=== PATIENT | male | born 1970 | race Caucasian/White ===

== ENCOUNTER 2017-11-20 22:21 | Inpatient (IN) | payer MEDICARE, OTHER ==
[~2017-11-20] VITALS: Ht 170.2 cm; Wt 76.0 kg
[~2017-11-20 22:21] MED LIST: Z.0.NO CURRENT MEDS
[2017-11-20 22:23] VITALS: BP 104/74; PULSE 76; RESP 16; O2SAT 100
[2017-11-20 22:32] VITALS: BP 141/77; PULSE 66; RESP 16; TEMP 98.2; O2SAT 99
[2017-11-20] MEDS ORDERED: SODIUM CHLORIDE 0.9% FLUSH 10 ML FLUSH IVF PRN (22:45)
[2017-11-20 22:55] VITALS: O2SAT 99
[2017-11-20 23:05] LABS: AUTOMATED NEUTROPHIL # 4.3 TH/MM3 (1.8-7.7); BASOPHIL % 0.4 % (0.0-2.0); EOSINOPHIL % 0.5 % (0.0-4.0); HEMATOCRIT 39.4 % (39.0-51.0); HEMOGLOBIN 13.3 GM/DL (13.0-17.0); LYMPH % 23.2 % (9.0-44.0); LYMPHOCYTE # 1.5 TH/MM3 (1.0-4.8); MEAN CELL VOLUME 87.3 FL (80.0-100.0); MEAN CORPUSCULAR HEMOGLOBIN 29.5 PG (27.0-34.0); MEAN CORPUSCULAR HGB CONC 33.8 % (32.0-36.0); MEAN PLATELET VOLUME 8.5 FL (7.0-11.0); MONO % 7.4 % (0.0-8.0); MONOCYTE # 0.5 TH/MM3 (0-0.9); NEUT % 68.5 % (16.0-70.0); PLATELET COUNT 192 TH/MM3 (150-450); RED BLOOD COUNT 4.52 MIL/MM3 (4.50-5.90); RED CELL DISTRIBUTION WIDTH 14.2 % (11.6-17.2); WHITE BLOOD COUNT 6.3 TH/MM3 (4.0-11.0)
[2017-11-20 23:16] LABS: INTERNATIONAL NORMALIZED RATIO 1.2 RATIO
--- NOTE | 2017-11-20 23:20 | RADRPT ---
EXAM DATE: 11/20/2017 10:59 PM EDT AGE/SEX: 47 years / Male INDICATIONS: Short of breath. CLINICAL DATA: This is the patient's initial encounter. Patient reports that signs and symptoms have been present for 1 day and indicates a pain score of 0/10. MEDICAL/SURGICAL HISTORY: None. None. COMPARISON: No prior exams available for comparison. FINDINGS: Single AP view of the chest. The lungs are clear. Cardiomediastinal silhouette within nor mal limits. No evidence of pleural effusion or pneumothorax. CONCLUSION: No acute cardiopulmonary disease identified. Electronically signed by: Armando Restrepo MD 11/20/2017 11:19 PM EDT
[2017-11-20] MEDS ORDERED: IOHEXOL 350 MG/ML 10 ML VIAL (for RAD DIAG) IVCONTRAST ONE (23:24)
--- NOTE | 2017-11-20 23:25 | PD ---
HPI Chief Complaint: Suicide Ideation/Attempt Time Seen by Provider: 22:33 Travel History International Travel<30 days: No Contact w/Intl Traveler<30days: No Traveled to known affect area: No History of Present Illness HPI The patient is a 47 year old male who presents to the [facility] emergency department with a history of attempting suicide by hanging prior to arrival. The patient reports that he has been depressed and considering suicide. He reports that he has attempted suicide in the past. The patient placed an inch thick rope/webbing material around his neck and then connected it to a tree. He proceeded to get into his vehicle and attempt to drive away. Patient was found sitting in his vehicle after this occurred. The patient reported that he had a loss of consciousness. The patient reports having neck pain and shoulder pain bilaterally. The patient denies having any numbness or tingling to his extremities. He denies having any weakness of his extremities. The patient was brought in by [place] emergency services. The patient's blood sugar was noted to be 135 prior to arrival, pulse 76, blood pressure 104/74, sats 100% on 2 L nasal cannula O2. The patient denies taking any psychiatric medications. He denies having a mental health diagnosis. He reports having a prior history of head injury. He is unsure whether he had any brain surgery, however he does have a large scar over the right side of his scalp. He reports that he was admitted to the hospital for a month related to this. The patient reports having difficulty swallowing. The patient has a slightly hoarse quality to his voice. On review of systems otherwise, the patient denies having any known recent fevers, cough or congestion, neck pain, chest pain, abdominal pain, vomiting, diarrhea, urinary symptoms, or other neurologic symptoms. [facility] Past Medical History Narrative Medical The patient's past medical history is significant for a prior history of suicide attempt, history of prior head injury, arthritis Arthritis: Yes (HE SAYS ITS ALL OVER, HOT SHOWERS HELP ALOT) Asthma: No Autoimmune Disease: No Blood Disorders: No Anxiety: No Depression: Yes (DX DEPREESED NOS) Heart Rhythm Problems: No Cancer: No Cardiovascular Problems: No High Cholesterol: No Chemotherapy: No Chest Pain: No Congestive Heart Failure: No COPD: No Cerebrovascular Accident: No Coronary Artery Disease: No Diabetes: No Diminished Hearing: No Endocrine: No GERD: No Glaucoma: No Genitourinary: No Headaches: No Hepatitis: No Hiatal Hernia: No Hypertension: No Immune Disorder: No Kidney Stones: No Musculoskeletal: No Psychiatric: No Reproductive: No Respiratory: No Migraines: No Myocardial Infarction: No Radiation Therapy: No Renal Failure: No Seizures: No Sickle Cell Disease: No Sleep Apnea: No Thyroid Disease: No Ulcer: No Tetanus Vaccination: Unknown Past Surgical History Narrative Surgical The patient's past surgical history is significant for jaw ORIF, right knee surgery, unspecified head trauma related surgery Abdominal Surgery: No AICD: No Cardiac Surgery: No Cholecystectomy: No Ear Surgery: No Endocrine Surgery: No Eye Surgery: No Genitourinary Surgery: No Gynecologic Surgery: No Joint Replacement: No Oral Surgery: No Pacemaker: No Thoracic Surgery: No Other Surgery: Yes (UNSPECIFIED HEAD TRAUMA, LEFT BROKEN RIBS) Social History Alcohol Use: No Tobacco Use: No Substance Use: No Allergies-Medications (Allergen,Severity, Reaction): Coded Allergies: No Known Allergies (Verified Allergy, Unknown, 11/21/17) Reported Meds & Prescriptions Reported Meds & Active Scripts Active Reported No Current Meds (Miscellaneous Medication) Misc Review of Systems Except as stated in HPI: all other systems reviewed are Neg General / Constitutional: No: Fever Eyes: No: Visual changes HENT: Positive: Neck Pain, No: Headaches, Neck Stiffness Cardiovascular: No: Chest Pain or Discomfort Respiratory: Positive: Shortness of Breath, No: Cough Gastrointestinal: No: Nausea, Vomiting, Diarrhea, Abdominal Pain Genitourinary: No: Dysuria Musculoskeletal: No: Pain Skin: No Rash Neurologic: No: Weakness, Focal Abnormalities, Change in Mentation, Slurred Speech, Sensory Disturbance Psychiatric: Positive: Depression, Suicidal Ideations Endocrine: No: Polydipsia Hematologic/Lymphatic: No: Easy Bruising Physical Exam Narrative General: The patient is a well-developed well-nourished male in no acute distress. The patient is brought in by ambulance services with a cervical collar in place. No backboard. Head and Neck exam: Head is normocephalic atraumatic. No facial bone tenderness or increased facial bone mobility noted on palpation. Eyes: EOMI, pupils are equal round and reactive to light. Nose: Midline septum with pink mucous membranes Mouth: Dentition unremarkable. Moist mucus membranes. Posterior oropharynx is not erythematous. No tonsillar hypertrophy. Uvula midline. Airway patent. Neck: The patient is immobilized in a cervical collar. No tracheal deviation. The trachea appears midline. Cardiovascular: Regular rate and rhythm without murmurs, gallops, or rubs. No pulse deficit to the extremities on simultaneous auscultation and palpation of his radial artery. Lungs: Clear to auscultation bilaterally. No wheezes, rhonchi, or rales. No chest wall tenderness to palpation. No erythema or ecchymosis noted. No crepitus , step off, or flail segment noted. Abdomen: Soft, without tenderness to palpation in all 4 quadrants of the abdomen. No guarding, rebound, or rigidity. No erythema or ecchymosis noted. Extremities: No instability or pain noted on pelvic rock. No clubbing, cyanosis , or edema. 2+ pulses in all 4 extremities. No extremity tenderness or deformity noted on palpation or passive/ active range of motion. Back: No spinous process tenderness to palpation. No stepoff or crepitus noted. No costovertebral angle tenderness to palpation. No erythema or ecchymosis. Neurologic Exam: Cranial nerves 2-12 were intact on exam. Strength is 5/5 in all 4 extremities. No sensory deficits noted. Skin Exam: No rash noted. Intact skin that is warm and dry. Data Data Last Documented VS Vital Signs Date Time Temp Pulse Resp B/P (MAP) Pulse Ox O2 Delivery O2 Flow Rate FiO2 11/21/17 03:51 65 16 132/66 (88) 97 Room Air 11/20/17 22:32 98.2 Orders Orders I-Stat Profile (11/20/17 22:33) Complete Blood Count With Diff (11/20/17 22:33) Prothrombin Time / Inr (Pt) (11/20/17 22:33) Act Partial Throm Time (Ptt) (11/20/17 22:33) Type And Screen (11/20/17 22:33) Fibrinogen (11/20/17 22:33) Alcohol (Ethanol) (11/20/17 22:33) Chest, Single Ap (11/20/17 22:33) Ct Brain W/O Iv Contrast(Rout) (11/20/17 22:33) Ct Cerv Spine W/O Contrast (11/20/17 22:33) Electrocardiogram (11/20/17 22:33) Iv Access Insert/Monitor (11/20/17 22:33) Ecg Monitoring (11/20/17 22:33) Oximetry (11/20/17 22:33) Oxygen Administration (11/20/17 22:33) Sodium Chloride 0.9% Flush (Ns Flush) (11/20/17 22:45) Drug Screen, Random Urine (11/20/17 22:33) Comprehensive Metabolic Panel (11/20/17 22:33) Cta Neck W Iv Contrast W 3d (11/20/17 ) Iohexol 350 Inj (Omnipaque 350 Inj) (11/20/17 23:24) Sodium Chlor 0.9% 1000 Ml Inj (Ns 1000 M (11/21/17 00:15) Potassium Chloride (Kcl) (11/21/17 00:15) Psych Screen (11/21/17 01:25) Admit Order (Ed Use Only) (11/21/17 15:35) Admit To Inpatient Psych (11/21/17 ) Code Status (11/21/17 15:35) Vital Signs (Adult) ISAMAR.[id number].E (11/21/17 15:35) Activity Oob Ad Lyssa (11/21/17 15:35) Level Of Observation (Psych) (11/21/17 15:35) Acetaminophen (Tylenol) (11/21/17 15:45) Magnesium Hydroxide Liq (Milk Of Magnesi (11/21/17 15:45) Al-Mag Hy-Si 40-40-4 Mg/Ml Liq (Mag-Al P (11/21/17 15:45) Basic Metabolic Panel (Bmp) (11/22/17 06:00) Lipid Profile (11/22/17 06:00) Hemoglobin (Hgb) A1c (11/22/17 06:00) Consult Hospitalist (11/21/17 ) Labs Laboratory Tests Test 11/20/17 22:46 11/20/17 22:48 White Blood Count 6.3 TH/MM3 Red Blood Count 4.52 MIL/MM3 Hemoglobin 13.3 GM/DL Bedside Hemoglobin 12.6 G/DL Hematocrit 39.4 % Bedside Hematocrit 37.0 % Mean Corpuscular Volume 87.3 FL Mean Corpuscular Hemoglobin 29.5 PG Mean Corpuscular Hemoglobin Concent 33.8 % Red Cell Distribution Width 14.2 % Platelet Count 192 TH/MM3 Mean Platelet Volume 8.5 FL Neutrophils (%) (Auto) 68.5 % Lymphocytes (%) (Auto) 23.2 % Monocytes (%) (Auto) 7.4 % Eosinophils (%) (Auto) 0.5 % Basophils (%) (Auto) 0.4 % Neutrophils # (Auto) 4.3 TH/MM3 Lymphocytes # (Auto) 1.5 TH/MM3 Monocytes # (Auto) 0.5 TH/MM3 Eosinophils # (Auto) 0.0 TH/MM3 Basophils # (Auto) 0.0 TH/MM3 CBC Comment DIFF FINAL Differential Comment Prothrombin Time 12.0 SEC Prothromb Time International Ratio 1.2 RATIO Activated Partial Thromboplast Time 23.1 SEC Fibrinogen 191 mg/dL Bedside Sodium 140 MMOL/L Blood Urea Nitrogen 11 MG/DL Creatinine 1.42 MG/DL Random Glucose 136 MG/DL Total Protein 6.4 GM/DL Albumin 3.4 GM/DL Calcium Level 8.0 MG/DL Alkaline Phosphatase 43 U/L Aspartate Amino Transf (AST/SGOT) 11 U/L Alanine Aminotransferase (ALT/SGPT) 13 U/L Total Bilirubin 0.8 MG/DL Sodium Level 140 MEQ/L Potassium Level 3.1 MEQ/L Chloride Level 107 MEQ/L Carbon Dioxide Level 20.5 MEQ/L Bedside Potassium 3.1 MMOL/L Bedside Chloride 104 MMOL/L Anion Gap 13 MEQ/L Bedside Blood Urea Nitrogen 12 MG/DL Bedside Creatinine 1.3 MG/DL Estimat Glomerular Filtration Rate 54 ML/MIN Bedside Glucose 137 MG/DL Ethyl Alcohol Level LESS THAN 3 MG/DL Urine Opiates Screen NEG Urine Barbiturates Screen NEG Urine Amphetamines Screen NEG Urine Benzodiazepines Screen NEG Urine Cocaine Screen NEG Urine Cannabinoids Screen NEG MDM Medical Decision Making Medical Screen Exam Complete: Yes Emergency Medical Condition: Yes Medical Record Reviewed: Yes Differential Diagnosis Cervical vasculature injury, versus cervical spine injury, versus soft tissue hematoma, versus laryngeal injury Narrative Course During the course of the patient's emergency department visit, the patient's history, examination, and differential diagnosis were reviewed with the patient. The patient was placed on a residential monitor with oximetry and frequent blood pressure monitoring. The patient had IV access obtained and blood work sent for analysis. I-STAT with creatinine were ordered. The patient had a EKG done on arrival that shows a sinus bradycardia heart rate of 59, QRS duration 97 ms, QTC 441 ms. The patient's i-STAT revealed a creatinine of 1.3, sodium 140, potassium 3.1, chloride 104, BUN 12, glucose 137, hemoglobin 12.6. The patient was initially provided normal saline IV fluids. The patient's laboratory studies were reviewed and remarkable for a white count of 6.3, hemoglobin 13.3, platelets 192 with a normal differential CMP is remarkable for a potassium of 3.1 which was supplemented orally, CO2 20.5, creatinine 1.42, glucose 137, AST 11, alk phos 43, PT 12, PTT 23.1, fibrinogen 191, urine drug screen is negative, alcohol level is less than 3. Radiology studies were reviewed and remarkable for Last Impressions Head CT 11/20/172232 Signed Impressions: CONCLUSION: 1. No acute intracranial findings. 2. Severe right-sided frontal and maxillary sinus disease. 3. Postsurgical findings in the anterior wall of the maxillary sinus and anter ior wall of the frontal sinus on the right. Chest X-Ray 11/20/172232 Signed Impressions: CONCLUSION: No acute cardiopulmonary disease identified. Cervical Spine CT 11/20/172232 Signed Impressions: CONCLUSION: 1. No evidence of fracture. 2. Mild/moderate multilevel degenerative findings. Neck CTA 11/20/17 0000 Signed Impressions: CONCLUSION: Carotid CTA within normal limits. No evidence of dissection or hemodynamically significant stenosis. The patient had a Garcia act provided by law enforcement prior to arrival. The patient's Garcia act was reviewed. The patient was medically cleared and a psychiatric screen was ordered. The patient's cervical collar was removed. After the cervical collar was removed it was noted that the patient had what appeared to be a friction burn along the anterior neck. This was superficial. No expanding hematoma or other swelling was noted. The patient reports that the area is tender to touch. Diagnosis Primary Impression: Suicide attempt by hanging Qualified Codes: T71.162A - Asphyxiation due to hanging, intentional self-harm , initial encounter Additional Impression: Hypokalemia Aurelia Winslow MD Nov 20, 2017 23:25
[2017-11-20 23:31] LABS: ALBUMIN 3.4 GM/DL (3.4-5.0); AST (GOT) 11 U/L (15-37); BICARBONATE 20.5 MEQ/L (21.0-32.0); BLOOD UREA NITROGEN 11 MG/DL (7-18); CHLORIDE 107 MEQ/L (98-107); CREATININE 1.42 MG/DL (0.60-1.30); GLOMERULAR FILTRATION RATE 54 ML/MIN (>89); GLUCOSE,RANDOM 136 MG/DL (74-106); SODIUM (NA) 140 MEQ/L (136-145)
[2017-11-20 23:34] LABS: ALKALINE PHOSPHATASE 43 U/L (45-117); ALT (GPT) 13 U/L (12-78); TOTAL BILIRUBIN ADULT 0.8 MG/DL (0.2-1.0); TOTAL PROTEIN 6.4 GM/DL (6.4-8.2)
--- NOTE | 2017-11-20 23:41 | RADRPT ---
EXAM DATE: 11/20/2017 11:21 PM EDT AGE/SEX: 47 years / Male INDICATIONS: Trauma, hanging. CLINICAL DATA: This is the patient's initial encounter. Patient reports that signs and symptoms have been present for 1 day and indicates a pain score of 5/10. MEDICAL/SURGICAL HISTORY: None. . RADIATION DOSE: 38.34 CTDI (mGy) COMPARISON: No prior exams available for comparison. TECHNIQUE: CT of the head without contrast. Using automated exposure control and adjustment of the mA and/or kV according to patient size, radiation dose was kept as low as reasonably achievable to ob tain optimal diagnostic quality images. FINDINGS: Cerebrum: The ventricles are normal for age. No evidence of midline shift, mass lesion, hemorrhage or acute infarction. No extraaxial fluid collections are seen. Posterior Fossa: The cerebellum and brainstem are intact. The 4th ventricle is midline. The cerebe llopontine angle is unremarkable. Extracranial: Complete opacification of the right maxillary sinus. Postsurgical findings with metall ic plate and screws in the anterior wall right maxillary sinus. Near complete opacification of the fr ontal sinuses with postsurgical metallic plate in the anterior wall of the right frontal sinus. Skull: The calvaria is intact. No evidence of skull fracture. CONCLUSION: 1. No acute intracranial findings. 2. Severe right-sided frontal and maxillary sinus disease. 3. Postsurgical findings in the anterior wall of the maxillary sinus and anterior wall of the fronta l sinus on the right. Electronically signed by: Armando Restrepo MD 11/20/2017 11:40 PM EDT
--- NOTE | 2017-11-20 23:47 | RADRPT ---
EXAM DATE: 11/20/2017 11:24 PM EDT AGE/SEX: 47 years / Male INDICATIONS: Trauma, hanging. CLINICAL DATA: This is the patient's initial encounter. Patient reports that signs and symptoms have been present for 1 day and indicates a pain score of 7/10. MEDICAL/SURGICAL HISTORY: None. . RADIATION DOSE: 16.86 CTDI (mGy) COMPARISON: No prior exams available for comparison. TECHNIQUE: Contiguous axial images were obtained using helical multirow detector technique. The vol umetric data was post-processed with multiplanar reconstruction in oblique axial, sagittal, and coron al planes. Using automated exposure control and adjustment of the mA and/or kV according to patient s ize, radiation dose was kept as low as reasonably achievable to obtain optimal diagnostic quality irina ges. FINDINGS: Vertebrae: Normal vertebral body height. Alignment: Normal. No subluxation. C2-3: Mild right-sided facet arthrosis. Mild right neural foraminal narrowing. Central canal diamete r within normal limits. C3-4: The bony spinal canal is normal in size. No evidence of disc bulge or herniation. The neural foramina are bilaterally patent. C4-5: Mild bilateral facet arthrosis. Mild left neural foraminal narrowing. Central canal diameter w ithin normal limits. C5-6: Minimal broad-based disc osteophyte complex. Mild bilateral facet arthrosis. Mild bilateral ne ural foraminal narrowing. Central canal diameter within normal limits. C6-7: The bony spinal canal is normal in size. No evidence of disc bulge or herniation. The neural foramina are bilaterally patent. C7-T1: The bony spinal canal is normal in size. No evidence of disc bulge or herniation. The neura l foramina are bilaterally patent. CONCLUSION: 1. No evidence of fracture. 2. Mild/moderate multilevel degenerative findings. Electronically signed by: Armando Restrepo MD 11/20/2017 11:46 PM EDT
--- NOTE | 2017-11-21 00:06 | RADRPT ---
EXAM DATE: 11/21/2017 12:00 AM EDT AGE/SEX: 47 years / Male INDICATIONS: Trauma, hanging. CLINICAL DATA: This is the patient's initial encounter. Patient reports that signs and symptoms have been present for 1 day and indicates a pain score of 8/10. MEDICAL/SURGICAL HISTORY: None. . RADIATION DOSE: 28.48 CTDI (mGy) COMPARISON: No prior exams available for comparison. TECHNIQUE: Volumetric scanning was performed using a multirow detector CT scanner during bolus infus ion of 70 ml Omnipaque 350 (iohexol) nonionic water-soluble contrast as a single exam dose. The da ta was postprocessed with a variety of visualization algorithms including full-volume maximum intensi ty projection, multiplanar sliding thin-slab reformation, curved-planar reformation, and surface-rend ering techniques. Using automated exposure control and adjustment of the mA and/or kV according to p atient size, radiation dose was kept as low as reasonably achievable to obtain optimal diagnostic toribio lity images. Elevated flow velocities and ICA/CCA ratios have been found to correlate with increased degrees of ve ssel stenosis, calculated as percentage of diameter relative to a normal segment of distal ICA/CCA. FINDINGS: Aortic Arch: Left vertebral origin off of the aortic arch. No evidence of significant stenosis. Right Carotid: The common carotid artery is intact. The carotid bulb has a normal configuration wit hout ulceration or narrowing. The internal carotid artery lumen is smooth without stenosis. The ext ernal carotid artery is intact. Left Carotid: The common carotid artery is intact. The carotid bulb has a normal configuration with out ulceration or narrowing. The internal carotid artery lumen is smooth without stenosis. The exte rnal carotid artery is intact. Vertebrals: The vertebral arteries have a symmetric diameter. No stenotic lesions are seen. CONCLUSION: Carotid CTA within normal limits. No evidence of dissection or hemodynamically significant stenosis. Electronically signed by: Armando Restrepo MD 11/21/2017 12:05 AM EDT
[2017-11-21] MEDS ORDERED: SODIUM CHLOR 0.9% 1000 ML INJ 1,000 ML IV ONE (00:15)
[2017-11-21] MEDS ORDERED: POTASSIUM CHLORIDE 20 MEQ CONTROLLED RELEASE TAB PO ONE (00:15)
[2017-11-21 00:34] VITALS: BP 127/70; PULSE 50; RESP 16; O2SAT 98
[2017-11-21 01:51] VITALS: BP 135/67; PULSE 59; RESP 16; O2SAT 100
[2017-11-21 03:51] VITALS: BP 132/66; PULSE 65; RESP 16; O2SAT 97
--- NOTE | 2017-11-21 14:29 | EKG ---
Date Performed: 11/20/2017 Time Performed: 21:34:27 PTAGE: 47 years EKG: Baseline artifact present SINUS BRADYCARDIA BORDERLINE ECG NO PREVIOUS TRACING DOCTOR: Shade Diaz Interpretating Date/Time 11/21/2017 14:28:01
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
[2017-11-21] MEDS ORDERED: MAGNESIUM HYDROXIDE SUSP 30 ML CUP PO PRN (15:45)
[2017-11-21] MEDS ORDERED: ALUMINUM/MAGNESIUM/SIMETH 30 ML CUP PO PRN (15:45)
[2017-11-21] MEDS: ACETAMINOPHEN 325 MG TAB PO PRN ×2 (16:19→22:09)
[2017-11-21 16:45] VITALS: BP 133/74; PULSE 57; RESP 18; TEMP 98; O2SAT 100
[2017-11-21] MEDS ORDERED: cloNIDine HCL 0.1 MG TAB PO PRN (17:15)
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
[2017-11-21] MEDS: QUEtiapine FUMARATE 100 MG TAB PO SCH (21:19)
[2017-11-22 06:22] VITALS: BP 131/71; PULSE 88; RESP 20; TEMP 97; O2SAT 97
[2017-11-22 08:18] LABS: AUTOMATED NEUTROPHIL # 3.1 TH/MM3 (1.8-7.7); BASOPHIL % 0.4 % (0.0-2.0); EOSINOPHIL # 0.1 TH/MM3 (0-0.4); EOSINOPHIL % 1.2 % (0.0-4.0); HEMATOCRIT 42.9 % (39.0-51.0); HEMOGLOBIN 14.6 GM/DL (13.0-17.0); LYMPH % 34.9 % (9.0-44.0); MEAN CELL VOLUME 88.4 FL (80.0-100.0); MEAN CORPUSCULAR HGB CONC 33.9 % (32.0-36.0); MEAN PLATELET VOLUME 8.7 FL (7.0-11.0); MONO % 8.4 % (0.0-8.0); MONOCYTE # 0.5 TH/MM3 (0-0.9); NEUT % 55.1 % (16.0-70.0); PLATELET COUNT 182 TH/MM3 (150-450); RED BLOOD COUNT 4.85 MIL/MM3 (4.50-5.90); RED CELL DISTRIBUTION WIDTH 14.5 % (11.6-17.2); WHITE BLOOD COUNT 5.7 TH/MM3 (4.0-11.0)
[2017-11-22 08:32] LABS: ALBUMIN 3.4 GM/DL (3.4-5.0); AST (GOT) 19 U/L (15-37); BICARBONATE 25.7 MEQ/L (21.0-32.0); BLOOD UREA NITROGEN 8 MG/DL (7-18); CALCIUM 8.3 MG/DL (8.5-10.1); CHLORIDE 107 MEQ/L (98-107); CREATININE 1.35 MG/DL (0.60-1.30); GLOMERULAR FILTRATION RATE 57 ML/MIN (>89); GLUCOSE,RANDOM 87 MG/DL (74-106); MAGNESIUM 2.3 MG/DL (1.5-2.5); SODIUM (NA) 142 MEQ/L (136-145)
[2017-11-22 08:42] LABS: ALKALINE PHOSPHATASE 47 U/L (45-117); ALT (GPT) 17 U/L (12-78); CHOLESTEROL 156 MG/DL (120-200); CHOLESTEROL/ HDL RATIO 4.06 RATIO; HDL CHOLESTEROL 38.4 MG/DL (40.0-60.0); LDL CHOLESTEROL 100 MG/DL (0-99); PHOSPHORUS 3.1 MG/DL (2.5-4.9); TOTAL BILIRUBIN ADULT 0.5 MG/DL (0.2-1.0); TOTAL PROTEIN 6.5 GM/DL (6.4-8.2); TRIGLYCERIDES 89 MG/DL (42-150)
[2017-11-22] MEDS: ESCITALOPRAM OXALATE 10 MG TAB PO SCH (08:51)
--- NOTE | 2017-11-22 11:27 | HHI.PR ---
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 Nursing staff does not report any events overnight or this morning. He denies any trouble swallowing, breathing, coughing , dizziness, headaches, lightheadedness, SOB or cough. He does report neck soreness and describe that at times it feels "tight". Denies any arm numbness or tingling. He does not report any other acute concerns or complaints at this moment. Objective Vitals Vital Signs Date Time Temp Pulse Resp B/P (MAP) Pulse Ox O2 Delivery O2 Flow Rate FiO2 11/22/17 06:22 97.0 88 20 131/71 (91) 97 11/21/17 16:45 98.0 57 18 133/74 (93) 100 11/21/17 16:37 Result Diagram: 11/22/17 0728 11/22/17 0728 Imaging Last Impressions Head CT 11/20/172232 Signed Impressions: CONCLUSION: 1. No acute intracranial findings. 2. Severe right-sided frontal and maxillary sinus disease. 3. Postsurgical findings in the anterior wall of the maxillary sinus and anter ior wall of the frontal sinus on the right. Chest X-Ray 11/20/172232 Signed Impressions: CONCLUSION: No acute cardiopulmonary disease identified. Cervical Spine CT 11/20/172232 Signed Impressions: CONCLUSION: 1. No evidence of fracture. 2. Mild/moderate multilevel degenerative findings. Neck CTA 11/20/17 0000 Signed Impressions: CONCLUSION: Carotid CTA within normal limits. No evidence of dissection or hemodynamically significant stenosis. Objective Remarks GENERAL: This is a well-nourished, well-developed patient, in no apparent distress. SKIN: Cool and dry. Neck abrasions open to air. HEAD: Normocephalic. EYES: Pupils equal round. Extraocular motions intact. No scleral icterus. No injection or drainage. ENT: Nose without bleeding. Throat without erythema. Airway patent. NECK: Trachea midline. Tenderness around abrasions with limited ROM due to pain. CARDIOVASCULAR: Regular rate and rhythm without murmurs, gallops, or rubs. RESPIRATORY: Clear to auscultation. No wheezes, rales, or rhonchi. GASTROINTESTINAL: Abdomen soft, non-tender, nondistended. MUSCULOSKELETAL: Extremities without clubbing, cyanosis, or edema. NEUROLOGICAL: Awake and alert. Cranial nerves II through XII grossly intact. Motor and sensory grossly within normal limits. Five out of 5 muscle strength in all muscle groups. Normal A/P Problem List: (1) Dehydration ICD Code: E86.0 - Dehydration (2) Hypokalemia ICD Code: E87.6 - Hypokalemia (3) Renal insufficiency ICD Code: N28.9 - Disorder of kidney and ureter, unspecified (4) Suicide attempt by hanging ICD Code: T71.162A - Asphyxiation due to hanging, intentional self-harm, initial encounter Status: Acute (5) Major depressive disorder without psychotic features ICD Code: F32.9 - Major depressive disorder, single episode, unspecified Status: Acute Assessment and Plan 47-year-old male with PMH of TBI with cognitive deficit admitted to inpatient psychiatry following attempted hanging. [facility] consulted to assist with medical management. Suicide attempt - Treatment per psych, greatly appreciated - Patient reports living in his car on mothers driveway, brother in charge of his SS disability check, DCF has been notified and did see him today Neck soreness/spasms - As a result of above. - Imaging with severe right frontal maxillary sinus disease, and mild to moderate multilevel degenerative findings otherwise unremarkable. No sinus complaints - Spasms described by patient, will start scheduled Baclofen for relief, as well as PRN Tylenol and Ibuprofen. Hypokalemia - Replaced with PO supplements, labs today with K 3.9 FUNMILAYO - Likely secondary to poor po intake, recheck labs today with improved creatinine, continue to encourage oral hydration DVT prophylaxis-ambulation Discussed with nursing staff. Mateusz Wong Nov 22, 2017 11:27
--- NOTE | 2017-11-22 13:29 | HHI.HP ---
Provisional Diagnosis Admission Date Nov 21, 2017 at 15:44 [place] I. 1. Adjustment disorder with disturbance of emotions and conduct [place] II. 1. Intellectual disability Certification of Person's Competence To Provide Express and Informed Consent I have personally examined Rubens Rossi , a person being served at [facility] on, Nov 22, 2017 13:29. Express and informed consent means consent voluntarily given in writing, by a competent person, after sufficient explanation and disclosure of the subject matter involved to enable the person to make a knowing and willful decision without any element of force, fraud, deceit, duress, or other form of constraint or coercion. This person is 18 years of age or older, is not now known to be incompetent to consent to treatment with a guardian advocate, and does not have a health care surrogate or proxy currently making medical treatment decisions. I have found this person to be one of the following: [x] Competent to provide express and informed consent, as defined above, for voluntary admission to this facility and is competent to provide express and informed consent for treatment. He/she has the consistent capacity to make well reasoned, willful, and knowing decisions concerning his or her medical or mental health treatment. The person fully and consistently understands the purpose of the admission for examination/placement and is fully capable of personally exercising all rights assured [place] Incompetent to provide express and informed consent to voluntary admission, and this is incompetent to provide express and informed consent to treatment. The person must be transferred to involuntary status and a petition for a guardian advocate filed with the Circuit Court. [] Refusing to provide express and informed consent to voluntary admission but is competent to provide express and informed consent for treatment. The person must be discharged or transferred to involuntary status. Form shall be completed within 24 hours of a person's arrival at the receiving facility and filed in the clinical record of each person: 1. Admitted on a voluntary basis 2. Permitted to provide express and informed consent to his/her own treatment 3. Allowed to transfer from involuntary to voluntary status 4. Prior to permitting a person to consent to his or her own treatment after having been previously found incompetent to consent to treatment. History of Present Illness Capacity: Has Capacity Psych Chief Complaint: Suicide attempt HPI Mr. Rossi is a 47-year-old male with a history of intellectual disability and depressive disorder who was brought into the ED under a Garcia act after attempted hanging. He was medically evaluated and cleared in the ED. He was additionally seen by the psychiatric nurse practitioner in the ED. Reviewing the electronic medical record, I note that the patient was admitted to the inpatient psychiatric unit here most recently in [address] Martinez. Patient seen and examined with nurse. Chart reviewed. Case discussed with nursing staff. On my examination today, the patient tells me that he tried to kill himself because "my brother Jose just got out of prison and started acting out on me. He and I do not get along." [facility] has already been contacted regarding this matter. Patient says that the suicide attempt was impulsive and says that he tried to hurt himself so that he did not impulsively hurt his brother and go to prison. He denies any suicidal or homicidal ideation presently. He describes his mood as "stressed out, angry with bad moods." No other depressive or hypomanic/manic symptoms. Sleep and appetite are fair. He denies any audiovisual hallucinations. I can elicit no delusional material. The remainder of the psychiatric ROS is negative. The patient has no acute physical complaints but does report some blurry vision, noting that it has been a while since he has seen an jet piercer operator. Past psychiatric history: Patient with previous diagnoses as noted above. He is not currently under the care of a psychiatrist. Most recent psychiatric admission was the one noted above with Dr. Martinez. He denies a history of suicide attempts. Denies a history of violent behavior. Family history: Patient denies any family history of mental illness. Chemical dependency history: No reported substance use. Social history: Patient is . He has a daughter. He completed high school in special education classes. He denies any history. Denies any legal history. He is disabled. He denies any access to guns or firearms. Denies any history of abuse. Review of Systems Except as stated in HPI: all other systems reviewed are Neg Past Family Social History Coded Allergies: No Known Allergies (Verified Allergy, Unknown, 11/21/17) Past Medical History See electronic medical record Reported Medications Miscellaneous (No Current Meds) Misc 12/02/05 Current Medications Medications (Trade) Dose Ordered Sig/Jose Route Start Time Stop Time Status Last Admin (NS Flush) 2 ml UNSCH PRN IVF 11/20/17 22:45 (Tylenol) 650 mg Q4H PRN PO 11/21/17 15:45 11/21/17 22:09 (Milk Of Magnesia Liq) 30 ml DAILY PRN PO 11/21/17 15:45 (Mag-Al Plus Susp Liq) 30 ml Q6H PRN PO 11/21/17 15:45 (SEROquel) 100 mg HS PO 11/21/17 21:00 11/21/17 21:19 (Lexapro) 10 mg DAILY PO 11/22/17 09:00 11/22/17 08:51 (Motrin) 400 mg Q6H PRN PO 11/21/17 16:15 (Catapres) 0.1 mg Q4H PRN PO 11/21/17 17:15 (Lioresal) 10 mg Q8HR PO 11/22/17 14:00 Patient's Strengths (min. 2) In a monitored setting. Verbally fluent. Physical Exam Physical exam completed by hospitalist engineering consultant. On my examination today, the patient appears to be in no acute physical distress. No motor abnormalities noted. Labs and vital signs reviewed: Vital Signs Vital Signs Date Time Temp Pulse Resp B/P (MAP) Pulse Ox O2 Delivery O2 Flow Rate FiO2 11/22/17 06:22 97.0 88 20 131/71 (91) 97 11/21/17 03:51 Room Air Lab Results Test 11/22/17 07:28 White Blood Count 5.7 TH/MM3 Red Blood Count 4.85 MIL/MM3 Hemoglobin 14.6 GM/DL Hematocrit 42.9 % Mean Corpuscular Volume 88.4 FL Mean Corpuscular Hemoglobin 30.0 PG Mean Corpuscular Hemoglobin Concent 33.9 % Red Cell Distribution Width 14.5 % Platelet Count 182 TH/MM3 Mean Platelet Volume 8.7 FL Neutrophils (%) (Auto) 55.1 % Lymphocytes (%) (Auto) 34.9 % Monocytes (%) (Auto) 8.4 % Eosinophils (%) (Auto) 1.2 % Basophils (%) (Auto) 0.4 % Neutrophils # (Auto) 3.1 TH/MM3 Lymphocytes # (Auto) 2.0 TH/MM3 Monocytes # (Auto) 0.5 TH/MM3 Eosinophils # (Auto) 0.1 TH/MM3 Basophils # (Auto) 0.0 TH/MM3 CBC Comment DIFF FINAL Differential Comment Blood Urea Nitrogen 8 MG/DL Creatinine 1.35 MG/DL Random Glucose 87 MG/DL Total Protein 6.5 GM/DL Albumin 3.4 GM/DL Calcium Level 8.3 MG/DL Phosphorus Level 3.1 MG/DL Magnesium Level 2.3 MG/DL Alkaline Phosphatase 47 U/L Aspartate Amino Transf (AST/SGOT) 19 U/L Alanine Aminotransferase (ALT/SGPT) 17 U/L Total Bilirubin 0.5 MG/DL Sodium Level 142 MEQ/L Potassium Level 3.9 MEQ/L Chloride Level 107 MEQ/L Carbon Dioxide Level 25.7 MEQ/L Anion Gap 9 MEQ/L Estimat Glomerular Filtration Rate 57 ML/MIN Triglycerides Level 89 MG/DL Cholesterol Level 156 MG/DL LDL Cholesterol 100 MG/DL HDL Cholesterol 38.4 MG/DL Cholesterol/HDL Ratio 4.06 RATIO Free Thyroxine 0.90 NG/DL Thyroid Stimulating Hormone 3rd Gen 1.230 uIU/ML Decreased GFR noted. Mental Status Examination Appearance: Appropriate Consciousness: Alert Orientation: x4 Motor Activity: Other (No motor abnormalities noted) Speech: Unremarkable Language: Adequate Fund of Knowledge: Inadequate Attention and Concentration: Adequate Memory: Unremarkable (Grossly intact on clinical exam) Mood: Other ("Stressed out") Affect: Euthymic (A little bit childlike) Thought Process & Associations: Linear Thought Content: Appropriate Hallucination Type: None Delusion Type: None Suicidal Ideation: No Suicidal Plan: No Suicidal Intention: No Homicidal Ideation: No Homicidal Plan: No Homicidal Intention: No Insight: Fair Judgment: Impulsive Assessment & Plan Problem List: (1) Adjustment disorder with mixed disturbance of emotions and conduct ICD Codes: F43.25 - Adjustment disorder with mixed disturbance of emotions and conduct (2) Intellectual disability ICD Codes: F79 - Unspecified intellectual disabilities Assessment & Plan 47-year-old male with psychiatric history as detailed above who presents under a Garcia act following suicide attempt by hanging. On my examination today, the patient reports that he self injured because of conflict with his brother. He denies any ongoing suicidal ideation but warrants observation for any ongoing impairments in safety. Admit inpatient. Voluntary status. Nurse practitioner has resumed Lexapro and Seroquel which were ordered during patient's previous psychiatric hospitalization here. I will continue the Lexapro 10 mg daily and continue the Seroquel 100 mg at bedtime with plans for further adjustments as needed. R/B/A for medications discussed with patient. Hospitalist input noted and appreciated. Vitals every shift. Counselor to see and obtain collateral. Disposition planning. Estimated length of stay: 5-7 days. Discharge Planning Pending outcome of observation. Request HC Surrog/Guard Advoc?: No Elroy Rosenberg MD Nov 22, 2017 13:29
[2017-11-22] MEDS: BACLOFEN 10 MG TAB PO SCH ×3 (14:00→21:57)
[2017-11-22 16:10] LABS: HEMOGLOBIN A1C 4.7 % (4.3-6.0)
[2017-11-22 18:00] VITALS: BP 125/63; PULSE 57; RESP 20; TEMP 98.4; O2SAT 100
[2017-11-22] MEDS: QUEtiapine FUMARATE 100 MG TAB PO SCH (20:58)
[2017-11-23] MEDS: BACLOFEN 10 MG TAB PO SCH ×3 (06:04→20:51)
[2017-11-23 06:19] VITALS: BP 120/69; PULSE 60; RESP 20; TEMP 98; O2SAT 99
[2017-11-23] MEDS: ESCITALOPRAM OXALATE 10 MG TAB PO SCH (08:06)
[2017-11-23] MEDS: ACETAMINOPHEN 325 MG TAB PO PRN ×2 (08:13→18:47)
--- NOTE | 2017-11-23 12:22 | HHI.PYPN ---
Subjective Chief Complaint: Suicide attempt Remarks Patient seen and examined with nurse. Chart reviewed. Case discussed with nursing staff. No behavioral issues noted. On my examination today, the patient presents as fairly childlike. He is in good spirits. He denies any suicidal or homicidal ideation. Denies any audiovisual hallucinations. Says that he is hopeful that he can stay with his brother, Corky. Denies side effects from medications. No physical complaints. Review of Systems Except as stated in HPI: all other systems reviewed are Neg Mental Status Examination Appearance: Appropriate Consciousness: Alert Orientation: x4 Motor Activity: Other (No abnormal motor movements noted) Speech: Unremarkable Language: Adequate Fund of Knowledge: Inadequate Attention and Concentration: Adequate Memory: Unremarkable (Grossly intact on clinical exam) Mood: Appropriate Affect: Euthymic (A little bit childlike) Thought Process & Associations: Linear Thought Content: Appropriate Hallucination Type: None Delusion Type: None Suicidal Ideation: No Suicidal Plan: No Suicidal Intention: No Homicidal Ideation: No Homicidal Plan: No Homicidal Intention: No Insight: Fair Judgment: Impulsive Results Labs Labs reviewed. No new labs. Vitals/IOs Vital Signs Date Time Temp Pulse Resp B/P (MAP) Pulse Ox O2 Delivery O2 Flow Rate FiO2 11/23/17 06:19 98.0 60 20 120/69 (86) 99 11/21/17 03:51 Room Air Assessment & Plan Problem List: (1) Adjustment disorder with mixed disturbance of emotions and conduct ICD Codes: F43.25 - Adjustment disorder with mixed disturbance of emotions and conduct (2) Intellectual disability ICD Codes: F79 - Unspecified intellectual disabilities Assessment & Plan Continue current psychotropics as ordered. Continue to monitor on inpatient unit. Continue other medications and care as ordered. Justification for Cont. Inpt. Risk for decompensation in less restrictive environment. Discharge Planning To be determined Request HC Surrog/Guard Advoc?: No Elroy Rosenberg MD Nov 23, 2017 12:22
[2017-11-23 17:45] VITALS: BP 149/78; PULSE 45; RESP 16; TEMP 97.8; O2SAT 99
[2017-11-23] MEDS: QUEtiapine FUMARATE 100 MG TAB PO SCH (20:51)
[2017-11-24] MEDS: BACLOFEN 10 MG TAB PO SCH ×3 (05:31→21:24)
[2017-11-24 05:49] VITALS: BP 115/62; PULSE 50; RESP 18; TEMP 97.9; O2SAT 98
[2017-11-24] MEDS: ESCITALOPRAM OXALATE 10 MG TAB PO SCH (09:19)
[2017-11-24] MEDS: ACETAMINOPHEN 325 MG TAB PO PRN ×2 (10:33→21:24)
--- NOTE | 2017-11-24 11:30 | PD.TTN ---
Patient Problems 1. Discharge planning 2. Medication compliance 3. Knowledge deficit 4. Lack of coping skills Progress Toward Goals Provider Present: Dr. Michael Rosenberg Provider Input: Patient is implusive , childlike, no behavioral problem on unit, will continue treatment Psychiatric Counselors Present: Lilo Arita [facility] Psych Therapist Input: Patient seen today. Patient is pleasant cooperative, affect blunted. Patient is excited he is getting vistor's day. Patient denies suicidal and homicidal ideation. Patient's speech is clear, organized. Group Spec/RT/OT/ESTEVES Present: JAZ Chaves Group Spec/RT/OT/ESTEVES Input: Patient attends groups appropriately Lilo Arita [facility] Nov 24, 2017 11:30
--- NOTE | 2017-11-24 14:20 | HHI.PYPN ---
Subjective Chief Complaint: Suicide attempt Remarks Patient seen and examined with nurse. Chart reviewed. Case discussed with nursing staff. No behaviors noted. Case discussed in treatment team. Counselor has endeavored to reach out to family to see if they might be able to take the patient in, but reportedly has not been able to reach anyone to confirm this. We are therefore without a safe discharge plan at present. On my examination today, the patient says that his mood is "very good." He denies any suicidal or homicidal ideation. Denies irritability. Denies audiovisual hallucinations. Complains of some mild drowsiness from medications, tolerable. No other medication side effects. No physical complaints. Review of Systems Except as stated in HPI: all other systems reviewed are Neg Mental Status Examination Appearance: Appropriate Consciousness: Alert Orientation: x4 Motor Activity: Other (No motor abnormalities noted) Speech: Unremarkable Language: Adequate Fund of Knowledge: Inadequate Attention and Concentration: Adequate Memory: Unremarkable (Grossly intact on clinical exam) Mood: Appropriate Affect: Euthymic (Remains a little bit childlike) Thought Process & Associations: Linear Thought Content: Appropriate Hallucination Type: None Delusion Type: None Suicidal Ideation: No Suicidal Plan: No Suicidal Intention: No Homicidal Ideation: No Homicidal Plan: No Homicidal Intention: No Insight: Fair Judgment: Impulsive Results Labs Labs reviewed. No new labs. Vitals/IOs Vital Signs Date Time Temp Pulse Resp B/P (MAP) Pulse Ox O2 Delivery O2 Flow Rate FiO2 11/24/17 05:49 97.9 50 18 115/62 (79) 98 11/21/17 03:51 Room Air Assessment & Plan Problem List: (1) Adjustment disorder with mixed disturbance of emotions and conduct ICD Codes: F43.25 - Adjustment disorder with mixed disturbance of emotions and conduct (2) Intellectual disability ICD Codes: F79 - Unspecified intellectual disabilities Assessment & Plan Continue current psychotropic medications as ordered. Continue to monitor on the inpatient unit. Continue other medications and care as ordered. Justification for Cont. Inpt. Absence of safe discharge plan Discharge Planning Anticipate discharge once safe discharge plan has been arranged. Request HC Surrog/Guard Advoc?: No Elroy Rosenberg MD Nov 24, 2017 14:20
[2017-11-24 17:23] VITALS: BP 154/90; PULSE 54; RESP 20; TEMP 98; O2SAT 100
[2017-11-24] MEDS: QUEtiapine FUMARATE 100 MG TAB PO SCH (20:51)
[2017-11-25 05:21] VITALS: BP 117/64; PULSE 54; RESP 17; TEMP 97.6; O2SAT 100
[2017-11-25] MEDS: BACLOFEN 10 MG TAB PO SCH ×3 (05:57→21:49)
[2017-11-25] MEDS: ESCITALOPRAM OXALATE 10 MG TAB PO SCH (09:50)
--- NOTE | 2017-11-25 10:58 | HHI.PYPN ---
Subjective Chief Complaint: Suicide attempt Remarks Patient was seen and case discussed with nursing. Patient has evidence of borderline intellectual functioning. 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 This likely played a role in his decision process with this suicide attempt. Patient describes animosity towards his brother and how he was either going to hurt him or himself. He says now that he is away from his brother he no longer wants to hurt himself or others. He does not have any anger or plan to hurt him. He says he just feels emotionally abused when his brother gets drunk. Mental Status Examination Appearance: Appropriate Consciousness: Alert Orientation: x4 Motor Activity: Other (No motor abnormalities noted) Speech: Unremarkable Language: Adequate Fund of Knowledge: Inadequate Attention and Concentration: Adequate Memory: Unremarkable (Grossly intact on clinical exam) Mood: Appropriate Affect: Euthymic (Remains a little bit childlike) Thought Process & Associations: Linear Thought Content: Appropriate Hallucination Type: None Delusion Type: None Suicidal Ideation: No Suicidal Plan: No Suicidal Intention: No Homicidal Ideation: No Homicidal Plan: No Homicidal Intention: No Insight: Fair Judgment: Impulsive Results Vitals/IOs Vital Signs Date Time Temp Pulse Resp B/P (MAP) Pulse Ox O2 Delivery O2 Flow Rate FiO2 11/25/17 05:21 97.6 54 17 117/64 (81) 100 Assessment & Plan Problem List: (1) Adjustment disorder with mixed disturbance of emotions and conduct ICD Codes: F43.25 - Adjustment disorder with mixed disturbance of emotions and conduct (2) Intellectual disability ICD Codes: F79 - Unspecified intellectual disabilities Assessment & Plan Continue current treatment plan Justification for Cont. Inpt. Patient would decompensate in a less restrictive setting Request HC Surrog/Guard Advoc?: No Juancarlos Peck DO Nov 25, 2017 10:57
[2017-11-25 17:11] VITALS: BP 108/58; PULSE 75; RESP 17; TEMP 97.9; O2SAT 99
[2017-11-25] MEDS: QUEtiapine FUMARATE 100 MG TAB PO SCH (20:26)
[2017-11-26 05:28] VITALS: BP 109/57; PULSE 53; RESP 16; TEMP 97.5; O2SAT 95
[2017-11-26] MEDS: BACLOFEN 10 MG TAB PO SCH ×3 (05:39→21:06)
[2017-11-26] MEDS: ESCITALOPRAM OXALATE 10 MG TAB PO SCH (08:29)
--- NOTE | 2017-11-26 09:37 | HHI.PYPN ---
Subjective Chief Complaint: Suicide attempt Remarks Patient was seen and case discussed with nursing. Patient says if his brother was in front of him he could possibly hurt him but he would never start anything himself. He has no plans or ideation of hurting his alcoholic brother Jose. His other brother Corky is coming to visit him today with a possible plan of them living together. Behaving well on the unit. No aggressive behavior. Intellectual dysfunction is evident Mental Status Examination Appearance: Appropriate Consciousness: Alert Orientation: x4 Motor Activity: Other (No motor abnormalities noted) Speech: Unremarkable Language: Adequate Fund of Knowledge: Inadequate Attention and Concentration: Adequate Memory: Unremarkable (Grossly intact on clinical exam) Mood: Appropriate Affect: Euthymic (Remains a little bit childlike) Thought Process & Associations: Linear Thought Content: Appropriate Hallucination Type: None Delusion Type: None Suicidal Ideation: No Suicidal Plan: No Suicidal Intention: No Homicidal Ideation: No Homicidal Plan: No Homicidal Intention: No Insight: Fair Judgment: Impulsive Results Vitals/IOs Vital Signs Date Time Temp Pulse Resp B/P (MAP) Pulse Ox O2 Delivery O2 Flow Rate FiO2 11/26/17 05:28 97.5 53 16 109/57 (74 95 Assessment & Plan Problem List: (1) Adjustment disorder with mixed disturbance of emotions and conduct ICD Codes: F43.25 - Adjustment disorder with mixed disturbance of emotions and conduct (2) Intellectual disability ICD Codes: F79 - Unspecified intellectual disabilities Assessment & Plan Continue current treatment plan Justification for Cont. Inpt. Patient would decompensate in a less restrictive setting Request HC Surrog/Guard Advoc?: No Juancarlos Peck DO Nov 26, 2017 09:37
[2017-11-26] MEDS: IBUPROFEN 400 MG TAB PO PRN ×3 (10:26→21:12)
[2017-11-26 16:51] VITALS: BP 125/78; PULSE 61; RESP 18; TEMP 98.3; O2SAT 97
[2017-11-26] MEDS: QUEtiapine FUMARATE 100 MG TAB PO SCH (21:06)
[2017-11-27] MEDS: BACLOFEN 10 MG TAB PO SCH ×3 (05:25→20:25)
[2017-11-27 05:58] VITALS: BP 122/58; PULSE 58; RESP 17; TEMP 97.6; O2SAT 99
[2017-11-27] MEDS: ESCITALOPRAM OXALATE 10 MG TAB PO SCH (09:00)
[2017-11-27] MEDS: IBUPROFEN 400 MG TAB PO PRN (16:21)
[2017-11-27 18:18] VITALS: BP 121/72; PULSE 56; RESP 16; TEMP 98.1; O2SAT 98
--- NOTE | 2017-11-27 19:27 | HHI.PYPN ---
Subjective Chief Complaint: Suicide attempt Remarks Reviewed electronic medical record and discussed case with staff. Follow-up was conducted in patient's room with nurse present. Patient reports today that he is feeling "much better". He denies any suicidal, homicidal ideation. He also denies auditory or visual hallucinations. He reports that he has been sleeping well and that his appetite has been "good". He denies any medication side effects. His mood is good and his affect is euthymic. Mental Status Examination Appearance: Appropriate Consciousness: Alert Orientation: x4 Motor Activity: Other (No motor abnormalities noted) Speech: Unremarkable Language: Adequate Fund of Knowledge: Inadequate Attention and Concentration: Adequate Memory: Unremarkable (Grossly intact on clinical exam) Mood: Appropriate Affect: Euthymic (Remains a little bit childlike) Thought Process & Associations: Linear Thought Content: Appropriate Hallucination Type: None Delusion Type: None Suicidal Ideation: No Suicidal Plan: No Suicidal Intention: No Homicidal Ideation: No Homicidal Plan: No Homicidal Intention: No Insight: Fair Judgment: Impulsive Results Vitals/IOs Vital Signs Date Time Temp Pulse Resp B/P (MAP) Pulse Ox O2 Delivery O2 Flow Rate FiO2 11/27/17 18:18 98.1 56 16 121/72 (88) 98 Assessment & Plan Problem List: (1) Adjustment disorder with mixed disturbance of emotions and conduct ICD Codes: F43.25 - Adjustment disorder with mixed disturbance of emotions and conduct (2) Intellectual disability ICD Codes: F79 - Unspecified intellectual disabilities Assessment & Plan Estimated LOS: Patient to be discharged to his brother, [place], tomorrow pending any difficulties tonight. Days Justification for Cont. Inpt. Patient is to be discharged to his brother's care tomorrow. Moving him to a lower level of care today he could result in a decompensation. Request HC Surrog/Guard Advoc?: No Lyn Rubin Nov 27, 2017 19:27
[2017-11-27] MEDS: QUEtiapine FUMARATE 100 MG TAB PO SCH (20:25)
[2017-11-28 05:39] VITALS: BP 116/66; PULSE 65; RESP 18; TEMP 98; O2SAT 98
[2017-11-28] MEDS: BACLOFEN 10 MG TAB PO SCH ×2 (06:05→14:38)
[2017-11-28] MEDS: ESCITALOPRAM OXALATE 10 MG TAB PO SCH (09:52)
[2017-11-28] MEDS: IBUPROFEN 400 MG TAB PO PRN ×2 (09:52→10:52)
[2017-11-28] MEDS ORDERED: QUET1TAB8 PO (10:53)
[2017-11-28] MEDS ORDERED: BACL10TA PO (10:53)
[2017-11-28] MEDS ORDERED: ESCI10TA PO (10:53)
--- NOTE | 2017-11-28 11:01 | HHI.DS ---
Psychiatry Discharge Summary Inpatient Psychiatric care?: Yes Advance Directive: No Reason Not Provided: declined Mental Health AdvanceDirective: No Health Care Proxy: No Admission Admission Date Nov 21, 2017 at 15:44 Admission Diagnosis: (1) Adjustment disorder with mixed disturbance of emotions and conduct ICD Code: F43.25 - Adjustment disorder with mixed disturbance of emotions and conduct Brief History Mr. Rossi is a 47-year-old male with a history of intellectual disability and depressive disorder who was brought into the ED under a Garcia act after attempted hanging. He was medically evaluated and cleared in the ED. He was additionally seen by the psychiatric nurse practitioner in the ED. Reviewing the electronic medical record, I note that the patient was admitted to the inpatient psychiatric unit here most recently in [address] Martinez. Patient seen and examined with nurse. Chart reviewed. Case discussed with nursing staff. On my examination today, the patient tells me that he tried to kill himself because "my brother Jose just got out of longterm and started acting out on me. He and I do not get along." [facility] has already been contacted regarding this matter. Patient says that the suicide attempt was impulsive and says that he tried to hurt himself so that he did not impulsively hurt his brother and go to longterm. He denies any suicidal or homicidal ideation presently. He describes his mood as "stressed out, angry with bad moods." No other depressive or hypomanic/manic symptoms. Sleep and appetite are fair. He denies any audiovisual hallucinations. I can elicit no delusional material. The remainder of the psychiatric ROS is negative. The patient has no acute physical complaints but does report some blurry vision, noting that it has been a while since he has seen an medical legal investigator. Past psychiatric history: Patient with previous diagnoses as noted above. He is not currently under the care of a psychiatrist. Most recent psychiatric admission was the one noted above with Dr. Martinez. He denies a history of suicide attempts. Denies a history of violent behavior. Family history: Patient denies any family history of mental illness. Chemical dependency history: No reported substance use. Social history: Patient is . He has a daughter. He completed high school in special education classes. He denies any history. Denies any legal history. He is disabled. He denies any access to guns or firearms. Denies any history of abuse. Tobacco Use In Past 30 Days: No Tobacco Past 30 Days Alcohol Use: Never Hospital Course Mr. Rossi was admitted to a locked psychiatric unit. All safety precautions were maintained throughout the visit. Patient was followed daily by a psychiatric provider as well as case management. Group therapy was made available. Seroquel and Lexapro were initiated and titrated for psychiatric stabilization. The patient has done well with his medication regimen. He reports that he feels "better". Upon examination today patient is alert and oriented x4. His speech is clear, logical, and organized. He denies suicidal or homicidal ideation as well as auditory or visual hallucinations. I can elicit no delusional material. There is no indication of internal stimulation or thought blocking. He does not appear psychotic nor manic at this time. There is no reason to believe that he poses an eminent danger to himself or others. At this time I believe he has reached the maximum benefit of this inpatient admission. Patient is to be discharged to his brother who is also his POA, Corky. He reports that he will be residing with his brother. Counseled patient on the importance of communicating to his brother when he encounters difficulties. He has been advised to return to the nearest hospital should his condition worsen. Results Blood Pressure 116 / 66 Vital Signs Date Time Temp Pulse Resp B/P (MAP) Pulse Ox O2 Delivery O2 Flow Rate FiO2 11/28/17 05:39 98.0 65 18 116/66 (83) 98 Laboratory Results Test 11/22/17 07:28 Cholesterol Level 156 MG/DL (120-200) HDL Cholesterol 38.4 MG/DL (40.0-60.0) Hemoglobin A1c 4.7 % (4.3-6.0) LDL Cholesterol 100 MG/DL (0-99) Triglycerides Level 89 MG/DL (42-150) Summary of Procedures n/a Imaging Last Impressions Head CT 11/20/172232 Signed Impressions: CONCLUSION: 1. No acute intracranial findings. 2. Severe right-sided frontal and maxillary sinus disease. 3. Postsurgical findings in the anterior wall of the maxillary sinus and anter ior wall of the frontal sinus on the right. Chest X-Ray 11/20/172232 Signed Impressions: CONCLUSION: No acute cardiopulmonary disease identified. Cervical Spine CT 11/20/172232 Signed Impressions: CONCLUSION: 1. No evidence of fracture. 2. Mild/moderate multilevel degenerative findings. Neck CTA 11/20/17 0000 Signed Impressions: CONCLUSION: Carotid CTA within normal limits. No evidence of dissection or hemodynamically significant stenosis. Pending results at discharge: No Medications # of Antipsychotic meds at D/C: 1 Approp Antipsych med options 1 - Minimum of three failed multiple trials of monotherapy. 2 - Documented plan to taper to monotherapy due to previous use of multiple meds OR cross-taper in progress at D/C. 3 - Documentation of augmentation of Clozapine. 4 - Justification other than those listed in allowable values 1-3, document here : Discharge Discharge Date: Nov 28, 2017 Discharge Diagnosis: (1) Adjustment disorder with mixed disturbance of emotions and conduct ICD Code: F43.25 - Adjustment disorder with mixed disturbance of emotions and conduct Pt Condition on Discharge: Stable Discharge Disposition: Discharge Home Discharge Instructions Diet Instructions: As Tolerated, No Restrictions Activities you can perform: Regular-No Restrictions Scheduled Appointment: [facility] Appointment Date: Nov 29, 2017 Appointment Time: 7:30am Discharge Time <= 30 minutes Mental Status Examination Appearance: Appropriate Consciousness: Alert Orientation: x4 Motor Activity: Other (No motor abnormalities noted) Speech: Unremarkable Language: Adequate Fund of Knowledge: Inadequate Attention and Concentration: Adequate Memory: Unremarkable (Grossly intact on clinical exam) Mood: Appropriate Affect: Euthymic (Remains a little bit childlike) Thought Process & Associations: Linear Thought Content: Appropriate Hallucination Type: None Delusion Type: None Suicidal Ideation: No Suicidal Plan: No Suicidal Intention: No Homicidal Ideation: No Homicidal Plan: No Homicidal Intention: No Insight: Fair Judgment: Impulsive Discharge/Advance Care Plan Health Problems: (1) Adjustment disorder with mixed disturbance of emotions and conduct (2) Intellectual disability Goals to promote your health * To prevent worsening of your condition and complications * To maintain your health at the optimal level Directions to meet your goals Take your medications as prescribed Follow your dietary instruction Follow activity as directed Keep your appointments as scheduled Take your immunizations and boosters as scheduled If your symptoms worsen call your PCP, if no PCP go to Urgent Care Center or Emergency Room For 02/01 questions related to your inpatient stay or results of tests pending at discharge, please contact Dr. Lyn Rubin at Smoking is Dangerous to Your Health. Avoid second hand smoking Lyn Rubin Nov 28, 2017 11:01
== END 2017-11-28 18:10 | disposition home or self-care (01) | DRG 882 ==
LOC: NEPE 22:21 → NEDA 11-21 15:44 → H260 11-21 16:39
PROVIDERS: ADMIT Psychiatry & Neurology Psychiatry; ATTEND Psychiatry & Neurology Psychiatry
DX: F43.25 Adjustment disorder with mixed disturbance of emotions and conduct (principal); T71.162A Asphyxiation due to hanging, intentional self-harm, initial encounter; N17.9 Acute kidney failure, unspecified; R13.10 Dysphagia, unspecified; R00.1 Bradycardia, unspecified; T20.07XA Burn of unspecified degree of neck, initial encounter; S06.9X0S Unspecified intracranial injury without loss of consciousness, sequela; J32.0 Chronic maxillary sinusitis; E86.0 Dehydration; R49.0 Dysphonia; E87.6 Hypokalemia; R41.89 Other symptoms and signs involving cognitive functions and awareness; H53.8 Other visual disturbances; M15.9 Polyosteoarthritis, unspecified; F32.9 Major depressive disorder, single episode, unspecified; V89.2XXS Person injured in unspecified motor-vehicle accident, traffic, sequela; Z59.0 Homelessness; Z81.1 Family history of alcohol abuse and dependence; Z91.5 Personal history of self-harm
CPT/HCPCS: 70450; 70498; 71045; 72125; 80048; 80053; 80061; 80307; 83036; 83735; 84100; 84439; 84443; 85025; 85384; 85610; 85730; 86850; 86900; 86901; 93005; J7030; Q9967